=== PATIENT | male | born 1975 | race Two or more races ===

== ENCOUNTER 2022-03-22 15:25 | Emergency (ER) | payer MEDICAID, OTHER, SELFPAY ==
--- NOTE | ~2022-03-22 | CT_ITS ---
EXAMINATION: CT SOFT TISSUE NECK WITH CONTRAST CLINICAL INFORMATION: Throat pain. Tenderness to palpation. COMPARISON: None available. TECHNIQUE: Multidetector helical imaging was performed in the axial plane following the administration of 60 mL of Omnipaque 350 intravenous contrast. Multiple axial reformats and coronal/sagittal reconstructions were created the technologist workstation for review. This CT examination was performed using dose optimization techniques as appropriate, variously including the following: *Automated exposure control. *Adjustment of mA and/or kV according to patient size (this includes techniques or standardized protocols for targeted exams where dose is matched to indication/reason for exam; i.e. extremities or head). *Use of iterative reconstruction technique. DLP: 554 mGy-cm FINDINGS: Mild subcutaneous thickening and subcutaneous fat stranding in the submental region. No discrete fluid collection within the deep tissues of the neck. The premaxillary, retromaxillary, pterygopalatine fossa, orbital apical, parapharyngeal, and prelaryngeal adipose tissue is maintained. Normal appearance of the parotid, submandibular, and thyroid glands. There is a 1.5 cm left level IIa lymph node. Otherwise, scattered subcentimeter lymph nodes bilaterally, none of which are pathologically enlarged or abnormally enhancing. Nonspecific asymmetric soft tissue along the left base of tongue, measuring approximately 2.2 x 1.3 x 2.4 cm. No demonstrated additional focal lesion or abnormal enhancement within the intrinsic tissues of the tongue or floor of mouth. No additional mucosal contour abnormalities of the pharynx and larynx. Normal appearance of the hyoid bone, thyroid cartilage, or cartilaginous trachea. The airways remains widely patent. No radiopaque foreign bodies. The atlantooccipital and atlantoaxial articulations remain well aligned. Straightening of the normal cervical lordosis. Moderate degenerative disc disease from C5-T2. No evidence of acute fracture or subluxation of the cervical spine. The vertebral body heights are maintained. No evidence of epidural collection. There is no prevertebral soft tissue swelling. Normal opacification of the cervical arterial and venous structures. The visualized portion of the skull base is without significant abnormalities. Moderate mucosal thickening of the paranasal sinuses. Moderate leftward nasal septal deviation. Multifocal odontogenic enamel erosions. The mastoid air cells and middle ear cavities are clear. No demonstrated significant periapical odontogenic disease. CT Upper Chest: The visualized lung apices and upper mediastinum are within normal limits. CT/CT soft tissue neck w IV con IMPRESSION: Nonspecific asymmetric soft tissue along the left base of tongue. Recommend correlation with direct visualization to exclude an underlying neoplastic process. There is a 1.5 cm left level IIa lymph node. No additional cervical lymphadenopathy. Nonspecific mild cutaneous thickening or subcutaneous fat stranding in the submental region. Multifocal odontogenic enamel erosions. No demonstrated discrete drainable fluid collection.
[2022-03-22 16:33] VITALS: BP 107/69; PULSE 68; RESP 18; TEMP 36.7; O2SAT 99; BMI 25.0
[2022-03-22 17:04] LABS: Strep A Nucleic Acid Negative (Negative)
[2022-03-22 17:05] LABS: COVID-19 Test Negative (Negative); IDNOW Serial# 55D5AD1C
--- NOTE | 2022-03-22 18:45 | ED.URI ---
HPI - URI/Sore Throat General Chief Complaint: Upper Respiratory Symptoms Stated Complaint: throat feels like its closing, cant swallow well Time Seen by Provider: 03/22/22 18:16 Source: patient Mode of arrival: ambulatory Limitations: language barrier ([place] speaking, offered lead medical technologist, requesting that his daughter interprets) History of Present Illness HPI Narrative: Patient presents to the emergency department for evaluation of throat pain. He states that this has been occurring for 1 month. Is getting progressively worse. States he is able to swallow, tolerating oral liquids and solids, but does develop a globus sensation and it is painful to swallow. Pain is described as ?feeling like a bone is going across the front of my neck?. Denies any past history of similar occurring. Denies any past medical history. Denies any fevers, chills, recent unintentional weight loss, history of smoking, alcohol consumption, acid reflux, chest pain, shortness of breath, nausea, vomiting, abdominal pain. Related Data Previous Rx's Medication Instructions Recorded omeprazole 20 mg capsule,delayed 20 mg PO DAILY #30 caps 03/22/22 release Allergies Allergy/AdvReac Type Severity Reaction Status Date / Time No Known Allergies Allergy Verified 03/22/22 18:55 Review of Systems Review of Systems: Constitutional: No weight loss. No fever. No chills. No weakness. No fatigue. Eye: No swelling. No redness. ENT: Positive throat/ anterior midline neck pain. No rhinorrhea. No nasal congestion. No difficulty swallowing. Skin: No rash. No itching. Cardiovascular: No chest pain. No chest pressure. No palpitations. No pedal edema. Respiratory: No shortness of breath. No cough. No sputum production. Gastrointestinal: No anorexia. No nausea. No vomiting. No diarrhea. No abdominal pain. No blood in stool. Genitourinary: No burning micturition. No urinary frequency. No incontinence. Neurologic: No headache. No dizziness. No pre-syncope/ syncope. Musculoskeletal: No muscle pain. No back pain. No joint pain. No stiffness. Hematologic: No bleeding. No bruising. Lymphatics: No enlarged lymph nodes. Psychiatric:No depression. No anxiety. Endocrine: No polyuria. No polydipsia. Yes all other systems are reviewed and are negative PMFSH Past Medical History Attestation statement: The following information was validated with the patient. Social History Social History Advance Directives: No Advance Directives Information Provided: No Physical Exam Vital Signs: Vital Signs: Last Vital Signs Temp 98.1 F 03/22/22 16:33 Pulse 68 03/22/22 16:33 Resp 18 03/22/22 16:33 BP 107/69 03/22/22 16:33 Pulse Ox 99 03/22/22 16:33 O2 Del Method 03/22/22 16:33 BMI result Body Mass Index 25.0 Appearance: Alert.?Oriented to person, place and time. No acute distress.?Normal affect. Eyes: Pupils equal, round and reactive to light.? ENT: Pharynx normal.? No erythema, exudate, swelling. Tenderness upon palpation over the left submental region Neck: Appears to have midline anterior neck swelling, significant tenderness even with light palpation. Due to tenderness and pain patient unable to tolerate examination of thyroid. CVS: Heart sounds normal. Normal heart rate and rhythm.? Pulses normal.?? Respiratory: No respiratory distress.? Lung sounds clear to auscultation bilaterally?? Abdomen: Soft and non-tender. Normoactive bowel sounds. ? Skin: Skin warm and dry.? Normal skin color.? Normal skin turgor.?? Extremities: No lower extremity edema.? Neuro: Moves all extremities spontaneously. Sensation intact bilaterally. No focal neuro deficits. Ambulates with normal steady gait. Course Course Course Narrative: Patient is a 46 old male with no significant past medical history presenting to the emergency department for evaluation of reported throat pain. Pain is not pharyngeal, is described as deeper, with localized tenderness with palpation over the midline anterior neck, and swelling upon inspection. Full AROM is present to the neck. No constitutional symptoms associated with this. Denies personal history of cancer, or smoking history. Obtain basic labs, in addition to CT of the soft tissue of the neck. Reevaluation(s) Reevaluation #1: CBC is overall unremarkable. CMP is overall unremarkable, slightly elevated calcium 10.6. TSH is normal. CT of the soft tissue neck reveals asymmetric soft tissue swelling along the left base of the home, 1.5 cm left level IIa lymph node, mild cutaneous thickening or subcutaneous fat stranding in the submental region. Reviewed these findings with ED attending, Dr. Flores, who agrees with plan of care for discharge home, outpatient follow-up with ear nose throat specialist for further evaluation, discussed with patient the possibility of cancer based on findings but no definitive diagnosis at this time. Furthermore he does not have any constitutional symptoms or risk factors identified at this time. We also discussed the possibility of globus, for which patient will be treated with omeprazole and recommended [id number] antacid with Gaviscon. Reviewed worrisome signs and symptoms to return back to the emergency department for. All questions were answered, patient was discharged home in stable condition. MDM - URI/Sore Throat Medical Records Attestation: I reviewed the patient's medical records. Lab Data Attestation: I reviewed the patient's lab results. Result diagrams: 03/22/22 19:44 03/22/22 19:44 Labs: Lab Results 03/22/22 03/22/22 03/22/22 Range/Units 16:42 16:42 19:44 WBC 5.9 (4.8-10.8) X10*3/uL RBC 5.39 (4.60-5.80) X10*6/uL Hgb 15.5 (14.0-18.0) g/dl Hct 44.6 (42.0-52.0) % MCV 82.7 (80.0-98.0) fL MCH 28.8 (27.0-33.0) pg MCHC 34.8 (31.0-36.0) g/dl RDW 13.1 (11.0-16.0) % Plt Count 270 (160-400) X10*3/uL MPV 9.6 (9.4-12.4) fL Immature Gran % (Auto) 0.3 (0.0-0.4) % Neut % (Auto) 48.7 (45-73) % Lymph % (Auto) 33.5 (20-40) % Winston % (Auto) 8.8 (2-11) % Eos % (Auto) 7.9 H (0-4) % Baso % (Auto) 0.8 (0-2) % Lymph # (Auto) 2.0 (1.2-4.9) X10*3/uL Winston # (Auto) 0.5 (0.1-1.2) X10*3/uL Eos # (Auto) 0.5 H (0.0-0.4) X10*3/uL Baso # (Auto) 0.1 (0.0-0.2) X10*3/uL Abs Immat Gran (auto) 0.02 (0.00-0.03) X10*3/uL Absolute Neuts (auto) 2.9 (2.0-8.3) x10*3/uL Absolute Nucleated RBC 0.000 (0.0-0.012) X10*3/uL Nucleated RBC % (auto) 0.0 (0.0-0.2) /100WBC Sodium (135-145) mmol/L Potassium (3.3-5.1) mmol/L Chloride (96-108) mmol/L Carbon Dioxide (22-29) mmol/L Anion Gap (12-20) BUN (9-16) mg/dL Creatinine (0.5-1.4) mg/dL Estim Creat Clear Calc Estimated GFR Random Glucose (60-115) mg/dL Calcium (8.4-10.2) mg/dL Total Bilirubin (0.0-1.0) mg/dL AST (5-37) U/L ALT (0-40) U/L Alkaline Phosphatase (39-117) U/L Total Protein (6.5-8.0) g/dL Albumin (3.5-5.0) g/dL TSH (0.32-4.0) uIU/mL COVID-19 ([facility]) Negative (Negative) COVID-19 Clin Com See Note S. pyogenes GrpA [facility]ICKI Negative (Negative) 03/22/22 Range/Units 19:44 WBC (4.8-10.8) X10*3/uL RBC (4.60-5.80) X10*6/uL Hgb (14.0-18.0) g/dl Hct (42.0-52.0) % MCV (80.0-98.0) fL MCH (27.0-33.0) pg MCHC (31.0-36.0) g/dl RDW (11.0-16.0) % Plt Count (160-400) X10*3/uL MPV (9.4-12.4) fL Immature Gran % (Auto) (0.0-0.4) % Neut % (Auto) (45-73) % Lymph % (Auto) (20-40) % Winston % (Auto) (2-11) % Eos % (Auto) (0-4) % Baso % (Auto) (0-2) % Lymph # (Auto) (1.2-4.9) X10*3/uL Winston # (Auto) (0.1-1.2) X10*3/uL Eos # (Auto) (0.0-0.4) X10*3/uL Baso # (Auto) (0.0-0.2) X10*3/uL Abs Immat Gran (auto) (0.00-0.03) X10*3/uL Absolute Neuts (auto) (2.0-8.3) x10*3/uL Absolute Nucleated RBC (0.0-0.012) X10*3/uL Nucleated RBC % (auto) (0.0-0.2) /100WBC Sodium 138 (135-145) mmol/L Potassium 4.0 (3.3-5.1) mmol/L Chloride 100 (96-108) mmol/L Carbon Dioxide 27 (22-29) mmol/L Anion Gap 15 (12-20) BUN 10 (9-16) mg/dL Creatinine 0.82 (0.5-1.4) mg/dL Estim Creat Clear Calc 118.6 Estimated GFR > 60 Random Glucose 96 (60-115) mg/dL Calcium 10.6 H (8.4-10.2) mg/dL Total Bilirubin 0.6 (0.0-1.0) mg/dL AST 24 (5-37) U/L ALT 24 (0-40) U/L Alkaline Phosphatase 50 (39-117) U/L Total Protein 7.9 (6.5-8.0) g/dL Albumin 4.7 (3.5-5.0) g/dL TSH 3.37 (0.32-4.0) uIU/mL COVID-19 ([facility]) (Negative) COVID-19 Clin Com S. pyogenes GrpA [facility] (Negative) Imaging Data CT neck: Radiologist's impression: CT/CT soft tissue neck w IV con IMPRESSION: Nonspecific asymmetric soft tissue along the left base of tongue. Recommend correlation with direct visualization to exclude an underlying neoplastic process. There is a 1.5 cm left level IIa lymph node. No additional cervical lymphadenopathy. ? Nonspecific mild cutaneous thickening or subcutaneous fat stranding in the submental region. ? Multifocal odontogenic enamel erosions. No demonstrated discrete drainable fluid collection. Discharge Plan Discharge Clinical Impression: Globus sensation Patient Disposition: Home, Self-Care Additional Instructions: As we discussed, this CT of your neck does show swelling along the left side of the tongue, and abnormal enlarged lymph node on the left, and swelling to the soft tissue of the chin. It is not exactly clear whether this is the cause of your pain. However, as we discussed it is important that you follow-up with an ear nose throat specialist for further evaluation. We did discuss the possibility of cancer, but there is no definitive diagnosis at this time. Please be certain to contact their office first thing tomorrow to arrange for an appointment. If that office is unable to see you, please contact your primary care provider to have them assist you in finding an ear nose throat specialist. It is possible that your symptoms may be related to a condition called globus. For this you have been given a prescription for omeprazole to take once daily for 30 days. Also, it is recommended that you purchase an [id number] antacid by the name of Appstarter. You may return to emergency department with any new or worsening symptoms or concerns. Prescriptions: New omeprazole 20 mg capsule,delayed release(DR/EC) 20 mg PO DAILY Qty: 30 0RF Referrals: Gus Cardona [Physician] - (abnormal soft tissue neck CT )
[2022-03-22 19:48] LABS: MANUAL DIFF FLAG NO
[2022-03-22 19:53] LABS: Basophils Absolute Auto 0.1 X10*3/uL (0.0-0.2); Basophils Percent Auto 0.8 % (0-2); Eosinophils Absolute Auto 0.5 X10*3/uL (0.0-0.4); Eosinophils Percent Auto 7.9 % (0-4); Hematocrit 44.6 % (42.0-52.0); Hemoglobin 15.5 g/dl (14.0-18.0); Imm Gran Abs Auto 0.02 X10*3/uL (0.00-0.03); Imm Gran Pct Auto 0.3 % (0.0-0.4); Lymphocytes Percent Auto 33.5 % (20-40); Mean Corpuscular HGB Conc 34.8 g/dl (31.0-36.0); Mean Corpuscular Hemoglobin 28.8 pg (27.0-33.0); Mean Corpuscular Volume 82.7 fL (80.0-98.0); Mean Platelet Volume 9.6 fL (9.4-12.4); Monocytes Absolute Auto 0.5 X10*3/uL (0.1-1.2); Monocytes Percent Auto 8.8 % (2-11); Neutrophils Absolute Auto 2.9 x10*3/uL (2.0-8.3); Neutrophils Percent Auto 48.7 % (45-73); Platelet Count 270 X10*3/uL (160-400); Red Blood Count 5.39 X10*6/uL (4.60-5.80); Red Cell Distribution Width 13.1 % (11.0-16.0); White Blood Count 5.9 X10*3/uL (4.8-10.8)
[2022-03-22 20:22] LABS: Alanine Aminotransferase 24 U/L (0-40); Albumin Level 4.7 g/dL (3.5-5.0); Alkaline Phosphatase 50 U/L (39-117); Anion Gap 15 (12-20); Aspartate Amino Transferase 24 U/L (5-37); Bilirubin Total 0.6 mg/dL (0.0-1.0); Blood Urea Nitrogen 10 mg/dL (9-16); Calcium 10.6 mg/dL (8.4-10.2); Carbon Dioxide 27 mmol/L (22-29); Chloride 100 mmol/L (96-108); Creatinine Clr Calc Pharmacy 118.6; Estimated Glomerular Filt Rate > 60; Glucose Random 96 mg/dL (60-115); Sodium 138 mmol/L (135-145); Total Protein 7.9 g/dL (6.5-8.0)
[2022-03-22 20:42] LABS: TSH reflex Free T4 3.37 uIU/mL (0.32-4.0)
[2022-03-22] MEDS: iohexoL 350 MG/ML 100 ML INFUS..BTL IV (20:50)
== END 2022-03-22 23:01 | disposition home or self-care (01) ==
PROVIDERS: Nurse Practitioner Family; Emergency Provider Emergency Medicine
DX: R13.10 Dysphagia, unspecified (principal); M54.2 Cervicalgia; Z20.822 Contact with and (suspected) exposure to COVID-19; Z79.899 Other long term (current) drug therapy
CPT/HCPCS: 36415; 70491; 80053; 84443; 85025; 87635; 87651; 99282; 99283; 99284; Q9967